=== PATIENT | female | born 1990 | race Caucasian/White ===

== ENCOUNTER 2016-12-23 08:28 | Emergency (ER) | payer OTHER ==
[~2016-12-23] VITALS: Ht 162.6 cm; Wt 73.0 kg
[2016-12-23 08:36] VITALS: TEMP 36.5; Ht 162.6 cm; Wt 73.0 kg
[2016-12-23] MEDS ORDERED: CETI10TA84 PO (08:55)
[2016-12-23] MEDS ORDERED: BCPILLS PO (08:55)
[2016-12-23] MEDS ORDERED: PRLSR20 PO (08:55)
--- NOTE | 2016-12-23 09:12 | DIAGNOSTIC IMAGING REPORT ---
RIGHT ELBOW 3 VIEWS CLINICAL HISTORY: Fall with right elbow pain. FINDINGS: 3 views of the right elbow are obtained. No prior studies are available for comparison at the time of dictation. The skeletal structures are well mineralized. No fracture is seen. The joint spaces of the elbow are well-maintained. There is no joint effusion. Soft tissue edema is present around the elbow. IMPRESSION: Soft tissue swelling with no radiographic evidence of right elbow fracture. Electronically signed by: López Lange M.D. 12/23/2016 9:10 AM Dictated Date/Time: 12/23/2016 9:09 AM
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
[2016-12-23 09:55] VITALS: BP 120/84; PULSE 101; O2SAT 100
== END 2016-12-23 09:55 | disposition home or self-care (01) ==
LOC: C.EDB 08:31 → C.EDA 09:55
DX: S40.021A Contusion of right upper arm, initial encounter (principal); W18.30XA Fall on same level, unspecified, initial encounter; Z79.3 Long term (current) use of hormonal contraceptives